=== PATIENT | female | born 1930 | race Caucasian/White ===

== ENCOUNTER 2019-06-19 02:31 | Inpatient (IN) | payer MEDICARE, BC ==
[~2019-06-19] VITALS: Ht 170.2 cm; Wt 73.2 kg
[2019-06-19] MEDS ORDERED: LASIX40 MG PO (02:39)
[2019-06-19] MEDS ORDERED: NEXIUM40 MG PO (02:40)
[2019-06-19] MEDS ORDERED: KLOR-CON M2020 MEQ PO (02:40)
[2019-06-19] MEDS ORDERED: ASPIRIN81 MG PO (02:40)
[2019-06-19] MEDS ORDERED: DILTIAZEM 24HR360 M4 PO (02:40)
[2019-06-19] MEDS ORDERED: METOPROLOL TART25 MG PO (02:41)
[2019-06-19] MEDS ORDERED: HYDROCODON-ACE1 EAC7 PO (02:41)
[2019-06-19] MEDS ORDERED: LANOXIN125 MCG PO (02:41)
[2019-06-19] MEDS ORDERED: COLACE100 MG PO (02:42)
[2019-06-19] MEDS ORDERED: MULTI-DAY VITAM1 TAB PO (02:42)
[2019-06-19] MEDS ORDERED: MUCINEX600 MG PO (02:42)
[2019-06-19] MEDS ORDERED: COUMADIN5 MG PO (02:43)
[2019-06-19] MEDS ORDERED: ACETAMINOPHEN500 M1 PO (02:43)
[2019-06-19] MEDS ORDERED: SINGULAIR10 MG PO (02:45)
[2019-06-19] MEDS ORDERED: FERROUS SULFAT325 MG PO (02:45)
[2019-06-19] MEDS ORDERED: MAG-OXIDE400 MG PO (02:46)
[2019-06-19 03:03] LABS: BASOPHILS 0.2 % (0-2); EOSINOPHILS 1.2 % (0-7); HEMATOCRIT 33.5 % (36.0-48.0); HEMOGLOBIN 11.5 g/dL (12-16); IMMATURE GRANULOCYTES 0.6 % (0-5); LYMPHOCYTES 16.2 % (15-50); MCH 31.3 pg (26.0-34.0); MCHC 34.3 g/dL (31.0-37.0); MCV 91.3 fL (80.0-100.0); MEAN PLATELET VOLUME 9.4 fL (7.4-10.4); MONOCYTES 7.9 % (2-11); NEUTROPHILS 73.9 % (40-80); PLATELET COUNT 309 10x3/uL (130-400); RBC 3.67 10x6/uL (4.00-5.40); RDW 14.6 % (11.5-14.5); WBC 11.6 10x3/uL (4.8-10.8)
[2019-06-19 03:11] LABS: CALC OSMOLALITY 261 mosm/kg (275-300); CALCIUM 8.4 mg/dL (8.5-10.1); CARBON DIOXIDE 26.4 mmol/L (21.0-32.0); CHLORIDE - SERUM 95 mmol/L (98-107); CREATININE - SERUM 0.9 mg/dL (0.6-1.3); GLUCOSE 124 mg/dL (74-106); POTASSIUM - SERUM 4.7 mmol/L (3.5-5.1); SODIUM 129 mmol/L (136-145); UREA NITROGEN 19 mg/dL (7-18); eGFR NON AFRICAN AMERICAN 62 mL/min (90-120)
[2019-06-19 03:13] LABS: APTT 31.2 SECONDS (22.8-39.4); INR 1.26 (0.85-1.17); PROTIME 15.3 SECONDS (11.6-15.0)
[2019-06-19 03:27] LABS: ALBUMIN 3.2 g/dL (3.4-5.0); ALKALINE PHOSPHATASE 101 U/L (46-116); ALT (SGPT) 19 U/L (10-68); BILIRUBIN - TOTAL 0.75 mg/dL (0.2-1.3); CKMB 0.5 U/L (0.0-3.6); CREATINE KINASE 165 UL (21-215); PROTEIN - SERUM 6.6 g/dL (6.4-8.2); TROPONIN-I < 0.017 ng/mL (0.000-0.060)
[2019-06-19 04:00] VITALS: BP 147/66
[2019-06-19 06:07] VITALS: BP 113/68; BMI 25.2
[2019-06-19] MEDS ORDERED: SMZ-TMP DS 800-1 TAB PO (06:27)
[2019-06-19] MEDS ORDERED: ZOLOFT25 MG PO (06:28)
--- NOTE | 2019-06-19 07:15 | NUR ---
PATIENT SITTING UP IN BED WITH GLASSES ON ALONG WITHT THE TV. ASSISSTED PATIENT TO THE BATHROOM. 700 ML OF OUTPUT. EDUCATED PT ON MEDICATIONS CURRENTLY RUNNING THROUGH IV. PLACED PT BACK IN BED WITH BED RAILS UP X 2 , BED IN LOW POSITION AND CALL LIGHT IN REACH. PT DENIES ANY ADDITIONAL NEEDS AT THIS TIME
[2019-06-19 07:59] VITALS: BP 104/45
[2019-06-19 08:09] VITALS: Ht 170.2 cm; Wt 73.2 kg
[2019-06-19 11:23] VITALS: BP 113/59
[2019-06-19 15:19] LABS: T4 THYROXIN - FREE 0.94 ng/dL (0.76-1.46); THYROID STIMULATING HORMONE 0.85 uIU/mL (0.36-3.74)
[2019-06-19 15:37] LABS: % SATURATION 12 % (15-55); IRON 31 ug/dl (35-150); TOTAL IRON BIND CAPACITY 239 ug/dl (260-445); UNSAT IRON BIND CAPACITY 208 ug/dl (150-375)
--- NOTE | 2019-06-19 19:28 | NUR ---
EVENING ROUDNS COMPLETE, PT LAYING IN BED, NO SIGNS OF DISTRESS. PT DENIES ANY PAIN OR NEEDS AT THIS TIME. AAOX4, CL IN REACH, BED IN LOWEST POSITION.
[2019-06-19 20:00] VITALS: BP 134/71
[2019-06-19 22:06] LABS: APPEARANCE CLEAR (CLEAR); BILIRUBIN NEGATIVE (NEGATIVE); COLOR YELLOW (YELLOW); GLUCOSE NEGATIVE (NEGATIVE); KETONE NEGATIVE (NEGATIVE); NITRITE NEGATIVE (NEGATIVE); PROTEIN NEGATIVE (NEGATIVE); UROBILINOGEN NORMAL (NORMAL)
[2019-06-20 01:08] VITALS: BP 105/51
[2019-06-20 05:32] VITALS: BP 114/71
[2019-06-20 07:03] LABS: BASOPHILS 0.5 % (0-2); EOSINOPHILS 0.7 % (0-7); HEMATOCRIT 29.8 % (36.0-48.0); IMMATURE GRANULOCYTES 0.7 % (0-5); LYMPHOCYTES 24.3 % (15-50); MCH 30.5 pg (26.0-34.0); MCHC 33.6 g/dL (31.0-37.0); MCV 90.9 fL (80.0-100.0); MEAN PLATELET VOLUME 9.3 fL (7.4-10.4); MONOCYTES 11.4 % (2-11); NEUTROPHILS 62.4 % (40-80); PLATELET COUNT 285 10x3/uL (130-400); RBC 3.28 10x6/uL (4.00-5.40); RDW 14.8 % (11.5-14.5)
--- NOTE | 2019-06-20 07:15 | NUR ---
BEDSIDE REPORT GIVEN, PT AWAKE AND ALERT WITHOUT COMPLAINTS. IV INFUSING TO RIGHT WRIST.
[2019-06-20 07:21] LABS: ALKALINE PHOSPHATASE 93 U/L (46-116); ALT (SGPT) 17 U/L (10-68); BILIRUBIN - TOTAL 0.94 mg/dL (0.2-1.3); CALCIUM 8.6 mg/dL (8.5-10.1); CARBON DIOXIDE 27.3 mmol/L (21.0-32.0); CHLORIDE - SERUM 98 mmol/L (98-107); GLUCOSE 118 mg/dL (74-106); POTASSIUM - SERUM 4.4 mmol/L (3.5-5.1); PROTEIN - SERUM 6.3 g/dL (6.4-8.2); SODIUM 130 mmol/L (136-145)
[2019-06-20 07:22] LABS: CALC OSMOLALITY 261 mosm/kg (275-300); CREATININE - SERUM 0.6 mg/dL (0.6-1.3); UREA NITROGEN 13 mg/dL (7-18); eGFR NON AFRICAN AMERICAN > 90 mL/min (90-120)
[2019-06-20 10:39] VITALS: BP 120/61
--- NOTE | 2019-06-20 12:20 | NUR ---
Rehab Prescreening Consult recieved and the chart has been reviewed. She is a good rehab candidate and will be accepted when medically stable. Discussed with the CM Godfrey Thurston. Cleo Hmailton RN Clinical Liaison, Rehab
[2019-06-20 13:19] VITALS: BP 125/71
--- NOTE | 2019-06-20 14:30 | NUR ---
PT HAS BEEN RUNNING UNCONTROLLED AFIB THIS MORNING, (120'S) AND ON ORAL CARDIZEM NOW AFTER DRIP BEING GIVEN ONE TIME DOSE. DR CARDONA AWARE OF RATE WITH VISIT TO PT ROOM.
--- NOTE | 2019-06-20 15:25 | EC ---
PATIENT:CAM GUTIERREZ DATE OF SERVICE: 06/19/19 SEX: F MEDICAL RECORD: [id number] DATE OF : [birth year] LOCATION:D.M2 D.210 AGE OF PATIENT: 88 ADMISSION DATE: 06/19/19 REFERRING PHYSICIAN: INTERPRETING PHYSICIAN: JANNET EWING MD ECHOCARDIOGRAM REPORT ECHO CHARGES 4 ECHO COMPLETE Date: 06/19/19 CLINICAL DIAGNOSIS: A-FIB H/O TAVR ECHOCARDIOGRAPHIC MEASUREMENTS (adult normal given) AC root (d.<3.7cm) 2.6 cm LV Septum d (<1.2 cm> 0.7 cm Valve Excursion 1.3 cm LV Septum (systole) 1.1 cm Left Atria (s.<4.0cm> 5.2 cm LVPW d(<1.2cm) 1.1 cm RV (d.<2.3cm) 2.5 cm LVPW (sytole) 1.5 cm LV diastole(<5.6CM) 4.8 cm MV E-F(>70mm/sec) cm LV systole 3.4 cm LVOT Diameter 1.8 cm MV exc.(>10mm) cm Est.ejection fraction (50-75%) % DOPPLER: LVIT cm/sec A cm/sec E 141 cm/sec LA cm/sec RVSP 45.2 mmHg LVOT 65.0 cm/sec AOP1/2T m/s Asc. Ao 181 cm/sec RVOT 65.0 cm/sec RA cm/sec PA 97.0 cm/sec AV Gradient Peak 13.1 mmHg AV Mean 7.4 mmHg AV Area 0.8 cm MV Gradient Peak 7.6 mmHg MV Mean 2.4 mmHg MV Area cm COMMENTS: Tank Truck Milk Receiver: 1 DAMON HARMONOE Electrical Continuity Tester: 1 Dr. Ewing TAPE# PACS Pericardial Effusion N DATE OF SERVICE: PROCEDURE: Echocardiogram. FINDINGS: 1. Left ventricular chamber size is mildly dilated. Left ventricular systolic function is mild to moderately reduced at 35%. 2. Left atrium is markedly enlarged at 5.2 cm. Right atrium and right ventricular chamber sizes are as well moderately dilated. 3. Valvular structures: Aortic valve is replaced with a tissue prosthesis that ECHOCARDIOGRAM REPORT [id number] CAM GUTIERREZ is a TAVR valve and that has normal structure and function in this position. The remaining valvular structures have normal structure and motion. 4. Doppler interrogation reveals moderate mitral regurgitation, moderate tricuspid regurgitation, no other valvular insufficiency or stenosis. Pulmonary systolic pressure is estimated 45 mmHg. 5. No evidence of pericardial effusion or left ventricular thrombus. TRANSINT:[id number] Voice Confirmation ID: [id number] DOCUMENT ID: [id number] JANNET EWING MD at 1525 CC: [id number] DICTATION DATE: 06/19/19 1553 SURGEON CHIEF: 06/20/19 0016 ADM IN [place] [id number] [place] [id number]
--- NOTE | 2019-06-20 15:25 | CN ---
PATIENT NAME:CAM ZAZUETA MEDICAL RECORD: [id number] : [birth year] LOCATION:D. D.2102 ADMIT DATE: 06/19/19 ACCOUNT: [id number] CONSULTING PHYSICIAN: JANNET CONKLIN MD REFERRING PHYSICIAN: MARY HECTOR MD DATE OF CONSULTATION: 06/19/2019 CARDIOLOGY CONSULTATION DIAGNOSES: 1. Atrial fibrillation. 2. Tachycardia. 3. Hypertension. 4. Status post fall -- hip pain. HISTORY OF PRESENT ILLNESS: Mrs. Zazueta was admitted with noncardiac reasons, status post fall and hip pain, does not appear that she fractured her hip. She was in atrial fibrillation with rapid ventricular response. However, the atrial fibrillation is not new. She has had this for years. She is on diltiazem, metoprolol, digoxin as well as Coumadin for the atrial fibrillation. She has not had any chest pain, chest discomfort, or symptoms from the atrial fibrillation. She did have palpitations when she was in extreme pain last night and felt the tachycardia. She did not miss any doses of her medications. PHYSICAL EXAMINATION: CONSTITUTIONAL/GENERAL APPEARANCE: Well nourished, well developed, appears stated age. EYES: Lids and conjunctivae noninjected. No discharge. No pallor. ENT: Lips within normal limit. No cyanosis. No pallor. NECK: Carotid arteries, bilateral normal upstroke. No bruits. No thrills. No jugular venous pressure or distention. CERVICAL LYMPH NODES: Nontender. Nonenlarged. THYROID: Not enlarged. No nodules. CARDIOVASCULAR: Precordial exam, nondisplaced. No heaves or pericardial thrills. The heart is irregularly irregular with atrial fibrillation at approximately 100 at this time. Heart sounds, normal S1, normal S2. No S3, no gallop, no rub. Systolic murmur, not heard. Diastolic murmur, not heard. RESPIRATORY: Respiratory effort, unlabored. Normal curvature. No thoracic deformity. No chest wall tenderness. Percussion, resonant. Auscultation, clear. No wheezes, no rales, no rhonchi. ABDOMEN: Soft, nondistended, nontender. No abdominal pain, no vomiting and normal appetite. MUSCULOSKELETAL: No joint tenderness, normal gait, normal tone. SKIN: Warm and dry. OVERALL IMPRESSION: Atrial fibrillation. This is not new. At this time, we will restart her home medications. She was given a diltiazem drip, we will discontinue this with restarting the medications, the p.o. medication should control the atrial fibrillation rate. TRANSINT:[id number] Voice Confirmation ID: [id number] DOCUMENT ID: [id number] CONSULT REPORT [id number] CAM ZAZUETA, JANNET CAMPBELL at 1525 CC: [id number] DICTATION DATE: 06/19/19 08 PHYSICAL THERAPY INSTRUCTOR: 06/19/19 1135 ADM IN [place] [id number] [place] [address]
--- NOTE | 2019-06-20 15:37 | MORECARE ---
CASE MANAGEMENT DISCHARGE SUMMARY PATIENT: CAM GUTIERREZ UNIT: [id number] ADM DATE: 06/19/19 AGE: 88 : [birth year] SEX: F ROOM/BED: D.210 AUTHOR: TIFFANY STACK PHYSICIAN: REFERRING PHYSICIAN: MARY HECTOR MD DATE OF SERVICE: 06/20/19 Discharge Plan Patient Name: CAM GUTIERREZ [facility] [facility] 1930 Planned Disposition: Inpatient Rehab Anticipated Discharge Date: 06/20/19 Discharge Date: Expected LOS: 1 Initial Reviewer: [email or web address] Initial Review Date: 06/20/2019 Generated: 06/20/19 4:36 pm Patient Name: CAM GUTIERREZ Page 70148 at 1537 All edits/amendments must be made on the electronic document DICTATION DATE: 06/20/191535 CAMPAIGN MARKETING SPECIALIST: JACKELIN 06/20/191535 RPT#: [id number] DC DATE: STATUS: ADM IN [facility] [address] [place] [address] END OF REPORT
--- NOTE | 2019-06-20 15:47 | MORECARE ---
CASE MANAGEMENT DISCHARGE SUMMARY PATIENT: CAM GUTIERREZ UNIT: [id number] ADM DATE: 06/19/19 AGE: 88 : [birth year] SEX: F ROOM/BED: D.210 AUTHOR: TIFFANY STACK PHYSICIAN: REFERRING PHYSICIAN: MARY HECTOR MD DATE OF SERVICE: 06/20/19 Discharge Plan Patient Name: CAM GUTIERREZ [facility] [facility] 1930 Planned Disposition: Inpatient Rehab Anticipated Discharge Date: 06/20/19 Discharge Date: Expected LOS: 1 Initial Reviewer: [email or web address] Initial Review Date: 06/20/2019 Generated: 06/20/19 4:47 pm Last DP export: 06/20/19 2:37 Patient Name: CAM GUTIERREZ Page 25031 at 1547 All edits/amendments must be made on the electronic document DICTATION DATE: 06/20/191546 SHIRT CREASER: JACKELIN 06/20/191546 RPT#: [id number] DC DATE: STATUS: ADM IN [facility] [address] [place] [address] END OF REPORT
--- NOTE | 2019-06-20 15:59 | MORECARE ---
CASE MANAGEMENT DISCHARGE SUMMARY PATIENT: CAM GUTIERREZ UNIT: [id number] ADM DATE: 06/19/19 AGE: 88 : [birth year] SEX: F ROOM/BED: D.2107 AUTHOR: SREEKANTH,DOC PHYSICIAN: REFERRING PHYSICIAN: MARY HECTOR MD DATE OF SERVICE: 06/20/19 Discharge Plan Patient Name: CAM GUTIERREZ [facility] [facility] 1930 Planned Disposition: Inpatient Rehab Anticipated Discharge Date: 06/20/19 Discharge Date: Expected LOS: 1 Initial Reviewer: [email or web address] Initial Review Date: 06/20/2019 Generated: 06/20/19 4:59 pm Comments DCP- Discharge Planning Updated by [email or web address]: Justin Thurston on 06/20/19 2:[address] Patient Name: CAM GUTIERREZ Admission Status: ER Accout number: [id number] Admission Date: 06-19-2019 : 1930 Admission Diagnosis: Attending: MARY HECTOR Current LOS: 1 Anticipated DC Date: 06-20-2019 Planned Disposition: Inpatient Rehab Primary Insurance: MEDICARE A & B PLANNED EXTERNAL PROVIDER: [facility] INPATIENT REHAB Discharge Planning Comments: CM RECEIVED ORDER FOR INPATIENT REHAB PRESCREENING , MET WITH PT AND SON IN ROOM TO DISCUSS DISCHARGE PLANNING AND NEEDS. CAM GUTIERREZ provided verbal consent to discuss current and ongoing needs with/in the presence of: SON AND DAUGHTER. PT'S SON WAS NOT ABLE TO REACH DAUGHTER DANIEL VIA PHONE. PT REPORTS LIVING AT ASSISTED LIVING WHO PROVIDED HELP WITH MEALS AND MEDICATIONS. PT HAS CANE, WALKER AND NIGHTTIME OXYGEN FROM UNKNOWN PROVIDER. CM DISCUSSED AVAILABILITY OF HOME HEALTH, REHAB SERVICES AND MEDICAL EQUIPMENT. PT AND FAMILY CONSIDERING REHAB AT INPATIENT AT [facility]. CM DISCUSSED DIFFERENCES AT LENGTH. PT AND SON WILL SPEAK TO DAUGHTER AND MAKE DECISION TODAY. CM RECEIVED CALL FROM PT'S SON, THEY HAVE DECIDED FOR INPATIENT REHAB AT [facility]. CM MET WITH PT AND SON IN ROOM, CONSENT SIGNED. [facility] NOTIFIED [facility] WHO WILL DISCHARGE PT TO INPATIENT REHAB. CM SPOKE TO [facility] OF INPATIENT REHAB WHO WILL ACCEPT PT TODAY. [facility] INPATIENT REHAB TO CONTACT MED 2 NURSE WITH ROOM NUMBER WHEN READY TO ACCEPT PT AND NURSE REPORT. Police And Fire Dispatcher: Jusitn Thurston DCPIA - Discharge Planning Initial Assessment Updated by [email or web address]: Justin Thurston on 06/20/19 3:53 pm * Is the patient Alert and Oriented? Yes * How many steps to enter\exit or inside your home? NONE * PCP DR. RICE * Pharmacy PT NOR SON CAN REMEMBER * Preadmission Environment Assisted Living * Facility Name [facility] * ADLs Partial Dependent * Partial ADLs (Assistance needed) Medication Management * Equipment Cane Oxygen Walker * Other Equipment UNKNOWN OXYGEN PROVIDER HOME OXYGEN ONLY AT NIGHT * List name and contact numbers for known caregivers / representatives who currently or will assist patient after discharge: DANIEL DOUGLASS, DTR, JAMIE GUTIERREZ, SON, * Verbal permission to speak to the caregivers and representatives has been obtained from the patient. Yes * Community resources currently utilized None * Please name any agencies selected above. NONE * Additional services required to return to the preadmission environment? Yes * Can the patient safely return to the preadmission environment? Yes * Has this patient been hospitalized within the prior 30 days at any hospital? No Coverage Notice Reviewer: [id number] - Justin Thurston Notice Issued Date-Time: 06/20/2019 14:40 Notice Type: Patient Choice Letter Notice Delivered To: Patient Relationship to Patient: Fuel Cell Test Engineer Name: Delivery Method: HAND - Hand Delivered Linnea Days: Prior Verbal Notification: Recipient Understood Notice: Yes Recipient Signature: Yes Med Rec Note Co-signed by Attending: Coverage Notice Comment: [facility] INPATIENT REHAB Last DP export: 06/20/19 2:47 Patient Name: CAM GUTIERREZ Page [id number] at 1559 All edits/amendments must be made on the electronic document DICTATION DATE: 06/20/191558 LEASING ASSISTANT: JACKELIN 06/20/191558 RPT#: [id number] DC DATE: STATUS: ADM IN [facility] [address] [place] [address] END OF REPORT
[2019-06-20 18:10] VITALS: BP 106/46
--- NOTE | 2019-06-20 19:33 | NUR ---
TRANSFERRED PT TO INPATIENT REHAB. FAMILY WITH. SENT WITH TELEMETRY PER VERBAL ORDER FROM ALAINA DAWSON DUE TO PT HISTORY.
--- NOTE | 2019-06-21 07:27 | NUR ---
OT NOTE: DOS 06/20/19 PT IS UNSTEADY AND REQUIRED MIN A FOR DYNAMIC ACTIVITIES. PT COMPLETED BED MOB WITH CGA. PT REQUIRED SUPINE TO SIT WITH MIN A. PT COMPLETED UE AROM AXS. THANK YOU, CANDIDO LEON
== END 2019-06-20 19:34 | DRG 309 ==
LOC: D.ER 02:31 → D.M2 03:25
PROVIDERS: Family Medicine; ADMIT Internal Medicine Nephrology; ATTEND Internal Medicine Nephrology
DX: I48.91 Unspecified atrial fibrillation (principal); N17.9 Acute kidney failure, unspecified; E87.1 Hypo-osmolality and hyponatremia; M25.551 Pain in right hip; W18.30XA Fall on same level, unspecified, initial encounter; D50.9 Iron deficiency anemia, unspecified; J44.9 Chronic obstructive pulmonary disease, unspecified; Z91.81 History of falling; K21.9 Gastro-esophageal reflux disease without esophagitis

== ENCOUNTER 2019-06-20 17:23 | Inpatient (IN) | payer MEDICARE, BC ==
[~2019-06-20] VITALS: Ht 170.2 cm; Wt 70.7 kg
[~2019-06-20 17:23] MED LIST: ACETAMINOPHEN500 M1 PO; ASPIRIN81 MG PO; COLACE100 MG PO; COUMADIN5 MG PO; DILTIAZEM 24HR360 M4 PO; FERROUS SULFAT325 MG PO; HYDROCODON-ACE1 EAC7 PO; KLOR-CON M2020 MEQ PO; LANOXIN125 MCG PO; LASIX40 MG PO; MAG-OXIDE400 MG PO; METOPROLOL TART25 MG PO; MUCINEX600 MG PO; MULTI-DAY VITAM1 TAB PO; NEXIUM40 MG PO; SINGULAIR10 MG PO; SMZ-TMP DS 800-1 TAB PO; ZOLOFT25 MG PO
[2019-06-20 21:39] VITALS: BP 113/46; BMI 25.1
--- NOTE | 2019-06-20 22:38 | NUR ---
ADMITTED TO PHYSICAL REHAB AND SERVICES OF DR PHILLIPS. AWAKE AND ALERT. RESPIRATIONS UNLABORED. SEE ADMISSION ASSESSMENT. ORIENTED TO PERSON AND PLACE BUT NOTED FORGETFUL OF DETAILS AND SHORT TERM MEMORY. NOTED HEAVY BRUISING ON RIGHT SIDE OF BODY, HIP AND BACK AND SMALL AMOUNT OF BRUISING ON LEFT HIP AREA RELATED TO FALLS X 2 AT HOME. MINIMAL ASSIST FOR TRANSFERS. ORIENTED TO ROOM AND CALL LIGHT USE. VOICES UNDERSTANDING. FALL PRECAUTIONS REVIEWED. VOICES UNDERSTANDING. SALINE LOCK TO RIGHT WRIST INTACT WITH NO SIGNS OF INFILTRATION. SALINE LOCK TO INNER RIGHT FOREARM DC'D PER PATIENT REQUEST. TELEMETRY ON TRACING UNCONTROLLED ATRIAL FIBRILLATION. DENIES CHEST PAIN OR SHORTNESS OF BREATH. RESTING NOW WITH NO DISTRESS NOTED. CALL LIGHT IN REACH.
--- NOTE | 2019-06-21 02:22 | NUR ---
RESTING IN BED WITH EYES CLOSED AND RESPIRATIONS UNLABORED. NO DISTRESS NOTED. CALL LIGHT IN REACH.
--- NOTE | 2019-06-21 03:01 | NUR ---
WOKE UP CONFUSED ASKING ABOUT SCHOOL EVENT. HAD PULLED OUT SALINE LOCK TO RIGHT WRIST. ASSISTED TO BATHROOM AND BACK TO BED. WILL MONITOR. CALL LIGHT IN REACH.
--- NOTE | 2019-06-21 04:44 | NUR ---
ASSISTED TO BATHROOM AND BACK TO BED. C/O PAIN IN RIGHT SIDE WITH ANY PHYSICAL ACTIVITY. ASSISTED TO LIE ON LEFT SIDE FOR COMFORT. MESSAGE LEFT FOR DR. PHILLIPS ON ROUNDING SHEET REGARDING PAIN.
--- NOTE | 2019-06-21 05:35 | NUR ---
RESTING QUIETLY, NO ACUTE DISTRESS NOTED. CONTINUES IN UNCONTROLLED ATRIAL FIB ON TELEMETRY.
[2019-06-21 07:49] LABS: CALC OSMOLALITY 259 mosm/kg (275-300); CALCIUM 8.7 mg/dL (8.5-10.1); CHLORIDE - SERUM 96 mmol/L (98-107); CREATININE - SERUM 0.5 mg/dL (0.6-1.3); GLUCOSE 126 mg/dL (74-106); SODIUM 129 mmol/L (136-145); UREA NITROGEN 10 mg/dL (7-18); eGFR NON AFRICAN AMERICAN > 90 mL/min (90-120)
[2019-06-21 07:53] LABS: BASOPHILS 0.3 % (0-2); EOSINOPHILS 2.3 % (0-7); HEMATOCRIT 31.5 % (36.0-48.0); HEMOGLOBIN 10.3 g/dL (12-16); IMMATURE GRANULOCYTES 0.5 % (0-5); LYMPHOCYTES 17.3 % (15-50); MCHC 32.7 g/dL (31.0-37.0); MCV 91.8 fL (80.0-100.0); MEAN PLATELET VOLUME 9.1 fL (7.4-10.4); MONOCYTES 10.1 % (2-11); NEUTROPHILS 69.5 % (40-80); PLATELET COUNT 295 10x3/uL (130-400); RBC 3.43 10x6/uL (4.00-5.40); RDW 14.8 % (11.5-14.5); WBC 7.3 10x3/uL (4.8-10.8)
[2019-06-21 08:00] VITALS: BP 132/69
--- NOTE | 2019-06-21 08:15 | NUR ---
PT RESTING IN BED WITH EYES OPEN CALL IN REACH WILL MONITER
[2019-06-21 09:52] VITALS: Ht 170.2 cm; Wt 70.7 kg
--- NOTE | 2019-06-21 14:34 | NUR ---
PATIENT ADMITTED TO REHAB FROM ACUTE FLOOR. DR. RICE IS HER PCP. PATIENT LIVES AT [facility] IN [place]. DME AT HOME IS A CANE, WALKER AND O2. DISCHARGE PLANS ARE FOR PATIENT TO RETURN TO HER HOME. WILL CONTINUE TO FOLLOW WITH PATIENT.
--- NOTE | 2019-06-21 18:53 | NUR ---
PT RESTING IN BED WITH EYES OPEN CALL LIGHT IN REACH NO PROBLEMS WILL MONITER
[2019-06-21 19:30] VITALS: BP 144/78
--- NOTE | 2019-06-21 19:30 | NUR ---
BEDSIDE REPORT COMPLETE. PT LYING IN BED EYES CLOSED RESTING COMFORTABLY. RR EVEN AND UNLABORED. EASILY AROUSED WITH VERBAL STIMULI. DENIES ANY NEEDS OR PAIN. BRUISING TO RIGHT BREAST, ARM, AND BACK. CL IN REACH. FALL PRECAUTIONS IN PLACE. WILL CONTINUE TO MONITOR
--- NOTE | 2019-06-22 01:11 | NUR ---
QUIET HOURS. PT LYING IN BED EYES CLOSED RESTING QUIETLY. RR EVEN AND UNLABORED. CL IN REACH
--- NOTE | 2019-06-22 04:00 | NUR ---
ASSISTED PT TO RESTROOM AND BACK TO BED WITH MIN ASSIST. NO SIGNS OF ACUTE DISTRESS NOTED. CL IN REACH. BED ALARM ON
[2019-06-22 08:00] VITALS: BP 146/64
--- NOTE | 2019-06-22 08:00 | NUR ---
PATIENT IS ALERT/ORIENT. CALL LIGHT WITHIN REACH. VOICES NO NEEDS AT THIS TIME. WILL CONTINUE WITH PLAN OF CARE
--- NOTE | 2019-06-22 10:50 | NUR ---
PATIENT IN REHAB ROOM. WORKING WITH PHYSICAL THERAPIST. DENIES ANY PAIN/DISC AT THIS TIME.
--- NOTE | 2019-06-22 13:06 | NUR ---
PATIENT SITTING UP IN WHEELCHAIR AT BEDSIDE VISITORS IN ROOM.
[2019-06-22 18:50] VITALS: BP 113/48
--- NOTE | 2019-06-22 18:50 | NUR ---
BEDSIDE REPORT COMPLETE. PT SITTING UP IN WC ALERT AND ORIENTED TO SELF. REORIENTED TO TIME, PLACE, AND SITUATION. DENIES ANY NEEDS OR PAIN. RR EVEN AND UNLABORED. VS STABLE. SHIFT ASSESSMENT COMPLETE. CL IN REACH. FALL PRECUATIONS IN PLACE. WILL CONTINUE TO MONITOR
--- NOTE | 2019-06-23 01:00 | NUR ---
ASSISTED PT TO RESTROOM AND BACK TO BED WITH MIN ASSIST. NO SIGNS OF ACUTE DISTRESS NOTED. CL IN REACH. BED ALARM ON
--- NOTE | 2019-06-23 06:28 | NUR ---
PT LYING IN BED EYES CLOSED RESTING QUIETLY. RR EVEN AND UNLABORED. CL IN REACH
[2019-06-23 08:00] VITALS: BP 127/88
--- NOTE | 2019-06-23 08:00 | NUR ---
SHIFT ASSMT COMPLETED.DENIES NEEDS.UP OOB TO BATHROOM.INCONT OF LOOSE BM.CLEANED AND CLOTHES CHANGED.SITTING UP EATING BREAKFAST WITH SET-UP PROVIDED.
--- NOTE | 2019-06-23 12:00 | NUR ---
SITTING UP EATING LUNCH.HAD C/O NAUSEA DURING LUNCH BUT RESOLVED;NO EMESIS.
--- NOTE | 2019-06-23 16:00 | NUR ---
VISITING WITH FAMILY.
[2019-06-23 19:20] VITALS: BP 87/57
--- NOTE | 2019-06-23 19:20 | NUR ---
BEDSIDE REPORT COMPLETE. PT LYING IN BED EYES CLOSED RESTING. EASILY AROUSED WITH VERBAL STIMULI. NO SIGNS OF ACUTE DISTRESS NOTED. DENIES ANY NEEDS OR PAIN. VS STABLE. SHIFT ASSESSMENT COMPLETE. CL IN REACH. BED ALARM ON. WILL CONTINUE TO MONITOR
--- NOTE | 2019-06-23 23:34 | NUR ---
QUIET HOURS. PT LYING IN BED SUPINE EYES CLOSED RESTING. HOB 10 DEGREES. RR EVEN AND UNLABORED. CL IN REACH
--- NOTE | 2019-06-24 03:37 | NUR ---
PT LYING IN BED EYES CLOSED RESTING QUIETLY. RR EVEN AND UNLABORED. CL IN REACH
--- NOTE | 2019-06-24 04:15 | NUR ---
ASSISTED PT TO RESTROOM AND BACK TO BED WITH MIN ASSIST. DENIES ANY OTHER NEEDS. CL IN REACH.
[2019-06-24 07:07] LABS: CALC OSMOLALITY 256 mosm/kg (275-300); CALCIUM 8.6 mg/dL (8.5-10.1); CARBON DIOXIDE 28.7 mmol/L (21.0-32.0); CHLORIDE - SERUM 93 mmol/L (98-107); CREATININE - SERUM 0.5 mg/dL (0.6-1.3); GLUCOSE 115 mg/dL (74-106); POTASSIUM - SERUM 4.1 mmol/L (3.5-5.1); SODIUM 128 mmol/L (136-145); UREA NITROGEN 11 mg/dL (7-18); eGFR NON AFRICAN AMERICAN > 90 mL/min (90-120)
[2019-06-24 07:15] LABS: BASOPHILS 0.5 % (0-2); EOSINOPHILS 1.9 % (0-7); HEMATOCRIT 31.2 % (36.0-48.0); HEMOGLOBIN 10.4 g/dL (12-16); IMMATURE GRANULOCYTES 0.8 % (0-5); LYMPHOCYTES 21.1 % (15-50); MCH 30.5 pg (26.0-34.0); MCHC 33.3 g/dL (31.0-37.0); MCV 91.5 fL (80.0-100.0); MEAN PLATELET VOLUME 8.9 fL (7.4-10.4); NEUTROPHILS 62.7 % (40-80); PLATELET COUNT 332 10x3/uL (130-400); RBC 3.41 10x6/uL (4.00-5.40); RDW 15.6 % (11.5-14.5); WBC 6.3 10x3/uL (4.8-10.8)
--- NOTE | 2019-06-24 08:27 | NUR ---
ALERT AND ORIENTED. SITTING IN WC EATING BREAKFAST. NO C/O PAIN CL IN REACH.
[2019-06-24 09:18] VITALS: BP 131/62
--- NOTE | 2019-06-24 13:03 | NUR ---
PARTICIPATED IN THERAPY THIS AM. SITTING IN CHAIR AT THIS TIME EATING LUNCH. CL IN REACH.
--- NOTE | 2019-06-24 13:56 | NUR ---
Nutrition Follow-up: Diet: Cardiac PO intake: ~47% average x last 9 meals. Reports "average" appetite. She tried Ensure and states that it is too sweet. She is willing to try Boost. Last BM: 06/23/19 x 2. WT: 161# (06/24/19); Admit wt: 160# (06/20/19) Meds: lasix. Labs noted: Glu 115mg/dL. Continue current diet. Encouraged PO intake. Encouraged protein intake. Will add Boost to breakfast tray for pt to try. RD following.
--- NOTE | 2019-06-24 15:56 | NUR ---
NO CHANGE IN ASSESSMENT. BACK FROM THERAPY AND RESTING IN BED. CL IN REACH.
--- NOTE | 2019-06-24 19:00 | NUR ---
BEDSIDE REPORT COMPLETE. PT LYING IN BED EYES CLOSED RESTING. EASILY AROUSED WITH VERBAL STIMULI. DENIES ANY NEEDS OR PAIN. NO SIGNS OF ACUTE DISTRESS NOTED. SHIFT ASSESSMENT COMPLETE. VS STABLE. CL IN REACH. BED ALARM ON. WILL CONTINUE TO MONITOR
[2019-06-24 20:56] VITALS: BP 133/78
--- NOTE | 2019-06-25 01:36 | NUR ---
QUIET HOURS. PT LYING IN BED EYES CLOSED RESTING QUIETLY. RR EVEN AND UNLABORED. CL IN REACH
--- NOTE | 2019-06-25 05:21 | NUR ---
PT LYING IN BED SUPINE EYES CLOSED RESTING. RR EVEN AND UNLABORED. CL IN REACH
--- NOTE | 2019-06-25 08:05 | NUR ---
IN WC IN THERAPY EATING BREAKFAST.
[2019-06-25 08:37] VITALS: BP 148/84
--- NOTE | 2019-06-25 10:31 | NUR ---
CARE TEAM MEETING : PATIENT IS PROGRESSING IN THERAPY . HER TENATIVE DISCHARGE DATE IS 07/02/19. SPOKE WITH PATIENT SON ABOUT DISCHARGE DATE. WILL CONTINUE TO FOLLOW WITH PATIENT.
--- NOTE | 2019-06-25 16:21 | NUR ---
RESTING WO DISTRESS. RESP EVEN AND UNLABORED. CL IN REACH.
--- NOTE | 2019-06-25 19:48 | NUR ---
GREETED PATIENT AND INTRODUCED MYSELF HER NURSE. PATIENT IS LAYING IN BED RESTING AT THIS TIME. RESPIRATIONS EVEN. NO S/S OF DISTRESS. CALL LIGHT IN REACH. STATES THAT PAIN IS 3/10 IN LOWER AND MIDDLE BACK. DENIES ANY FURTHER NEEDS AT THIS TIME.
[2019-06-25 20:00] VITALS: BP 125/59
--- NOTE | 2019-06-26 02:19 | NUR ---
PT. RESTING QUIETLY LAYING IN BED WITH EYES OPEN. DENIES ANY NEEDS AT THIS TIME. CALL LIGHT IN REACH.
--- NOTE | 2019-06-26 04:25 | NUR ---
PT. AWAKE AND LAYING IN BED. PT. IS CONFUSED OF HER SURROUNDINGS AT THIS TIME. REORIENTATED TO SURROUNDINGS. CALL LIGHT IN REACH.
[2019-06-26 06:35] LABS: BASOPHILS 0.6 % (0-2); EOSINOPHILS 2.2 % (0-7); HEMATOCRIT 30.9 % (36.0-48.0); HEMOGLOBIN 10.3 g/dL (12-16); IMMATURE GRANULOCYTES 0.6 % (0-5); LYMPHOCYTES 26.2 % (15-50); MCH 30.7 pg (26.0-34.0); MCHC 33.3 g/dL (31.0-37.0); MCV 92.2 fL (80.0-100.0); MEAN PLATELET VOLUME 9.1 fL (7.4-10.4); MONOCYTES 15.2 % (2-11); NEUTROPHILS 55.2 % (40-80); PLATELET COUNT 292 10x3/uL (130-400); RBC 3.35 10x6/uL (4.00-5.40); WBC 6.3 10x3/uL (4.8-10.8)
[2019-06-26 07:02] LABS: CALC OSMOLALITY 259 mosm/kg (275-300); CALCIUM 8.5 mg/dL (8.5-10.1); CARBON DIOXIDE 26.4 mmol/L (21.0-32.0); CHLORIDE - SERUM 94 mmol/L (98-107); CREATININE - SERUM 0.5 mg/dL (0.6-1.3); GLUCOSE 109 mg/dL (74-106); POTASSIUM - SERUM 4.1 mmol/L (3.5-5.1); SODIUM 129 mmol/L (136-145); UREA NITROGEN 13 mg/dL (7-18); eGFR NON AFRICAN AMERICAN > 90 mL/min (90-120)
--- NOTE | 2019-06-26 10:51 | NUR ---
RESTING QUIETLY IN BED. FAMILY HAS BEEN IN ROOM VISITING WITH HER. BRUISING NOTED TO RIGHT SIDE OF BACK. SHE DOES HAVE CURVATURE OF THE SPINE. MIN ASST TO STAND AND TRANSFER FROM BED TO . CALL LIGHT IN REACH
--- NOTE | 2019-06-26 18:04 | NUR ---
LAYING IN BED RESTING QUIETLY. DENIES NEEDS OR C/O. CALL LIGHT IN REACH
[2019-06-26 19:15] VITALS: BP 90/50
[2019-06-26 19:20] VITALS: BP 128/65
--- NOTE | 2019-06-26 19:27 | NUR ---
AWAKE AND ALERT. DISORIENTED TO TIME. RESPIRATIONS UNLABORED. O2/2L ON PER NASAL CANNULA. NO ACUTE DISTRESS NOTED. CALL LIGHT IN REACH.
--- NOTE | 2019-06-26 23:00 | NUR ---
ASSISTED TO BATHROOM AND BACK TO BED. CONTINUES BEING CONFUSED. PACKING AND UNPACKING THINGS IN HER WASH STORY. ENCOURAGED TO TRY AND REST. SHE STATES SHE WILL TRY.
--- NOTE | 2019-06-27 03:05 | NUR ---
SLEEPING NOW WITH RESPIRATIONS UNLABORED. NO DISTRESS NOTED.
--- NOTE | 2019-06-27 03:23 | NUR ---
WOKE UP AND GOT OUT OF BED WITHOUT ASSISTANCE TRIGGERING BED ALARM. ASSISTED BACK TO BED. REMINDED TO ALWAYS CALL FOR ASSISTANCE BEFORE GETTING UP. SHE SAID OK.
--- NOTE | 2019-06-27 05:29 | NUR ---
HAS HAD PERIODS OF CONFUSION TONIGHT. RESTED FOR THE LAST TWO HOURS. RESPIRATIONS UNLABORED. SAFETY MEASURES IN PLACE.
--- NOTE | 2019-06-27 08:09 | NUR ---
ALERT AND ORIENTED. RESP EVEN AND UNLABORED. NO C/O PAIN. BREAKFAST SERVED. CL IN REACH.
[2019-06-27 08:19] VITALS: BP 134/78
--- NOTE | 2019-06-27 10:35 | NUR ---
RESTING WO DISTRESS. RESP EVEN AND UNLABORED. WILL HAVE SHOWER TODAY WITH OT. CL IN REACH.
--- NOTE | 2019-06-27 13:59 | NUR ---
Nutrition Follow-up: Diet: Cardiac + Boost on breakfast tray PO intake: ~48% average x last 10 meals. Reports that her appetite is "down a little." She likes the Boost and states that she could drink up to 2 cans/day. Last BM: 06/23/19 x 2 (x4 days now) WT: 158# (06/27/19); Admit wt: 160# (06/20/19) Meds noted: miralax, colace, lasix. Labs reviewed Continue current diet. Encourage PO intake. Will increase Boost to BID. Consider increase in bowel regimen to promote BM regularity and hopefully help with appetite. RD following.
--- NOTE | 2019-06-27 16:41 | NUR ---
NO CHANGE IN ASSESSMENT. RESTING WO C/O PAIN. CL IN REACH.
--- NOTE | 2019-06-27 19:22 | NUR ---
GREETED PATIENT AND INTRODUCED MYSELF HER NURSE. PATIENT IS LAYING IN BED RESTING QUIETLY AT THIS TIME. RESPIRATIONS EVEN. NO S/S OF DISTRESS. DENIES ANY NEEDS AT THIS TIME. CALL LIGHT IN REACH.
[2019-06-27 19:30] VITALS: BP 137/82
--- NOTE | 2019-06-28 02:27 | NUR ---
PT. RESTING QUIETLY WITH EYES CLOSED. RESPIRATIONS EVEN. NO S/S OF DISTRESS. CALL LIGHT IN REACH.
[2019-06-28 07:34] LABS: BASOPHILS 0.4 % (0-2); EOSINOPHILS 1.1 % (0-7); HEMATOCRIT 34.5 % (36.0-48.0); HEMOGLOBIN 11.6 g/dL (12-16); IMMATURE GRANULOCYTES 0.4 % (0-5); LYMPHOCYTES 21.1 % (15-50); MCH 30.7 pg (26.0-34.0); MCHC 33.6 g/dL (31.0-37.0); MCV 91.3 fL (80.0-100.0); MEAN PLATELET VOLUME 8.4 fL (7.4-10.4); MONOCYTES 14.5 % (2-11); NEUTROPHILS 62.5 % (40-80); RBC 3.78 10x6/uL (4.00-5.40); RDW 15.6 % (11.5-14.5); WBC 5.3 10x3/uL (4.8-10.8)
[2019-06-28 07:36] LABS: CALC OSMOLALITY 252 mosm/kg (275-300); CALCIUM 8.7 mg/dL (8.5-10.1); CHLORIDE - SERUM 90 mmol/L (98-107); CREATININE - SERUM 0.6 mg/dL (0.6-1.3); GLUCOSE 113 mg/dL (74-106); SODIUM 126 mmol/L (136-145); UREA NITROGEN 9 mg/dL (7-18); eGFR NON AFRICAN AMERICAN > 90 mL/min (90-120)
[2019-06-28 07:42] LABS: PLATELET COUNT 355 10x3/uL (130-400)
--- NOTE | 2019-06-28 08:00 | NUR ---
PT RESTINB IN BED WITH EYES OPEN CALL LIGHT IN REACH WILL MONITER
[2019-06-28 10:24] VITALS: BP 132/71
--- NOTE | 2019-06-28 16:57 | NUR ---
PT RESTING IN BED WITH EYES OPEN CALL LIGHT IN REACH WILL MONITER
--- NOTE | 2019-06-28 17:50 | NUR ---
PT RESTING IN BED WITH EYES OPEN CALL LIGHT IN REACH NO PROBLEMS WILL MONITER
[2019-06-28 19:00] VITALS: BP 119/57
--- NOTE | 2019-06-28 19:40 | NUR ---
PT LYING IN BED. CL IN REACH. DENIES NEEDS AT THIS TIME. BED IN LOW SIDE RAILS X2. RESP EVEN AND UNLABORED. CONFUSED AT TIMES. LUNGS CLEAR. BOWEL ACTIVE X4. SOB WITH EXCERTION. WILL CONTINUE TO MONITOR.
--- NOTE | 2019-06-28 22:12 | NUR ---
ASSISTED TO AND FROM BATHROOM. CL IN REACH. DENIES FURTHER NEEDS. WCTM
--- NOTE | 2019-06-29 01:11 | NUR ---
I have reviewed this patient and I concur with the Shift Assessment completed by the Licensed Practical Nurse today this shift.
--- NOTE | 2019-06-29 08:00 | NUR ---
PT RESTING IN BED EATING BREAKFAST TOLERATING WELL WILL MONITER
--- NOTE | 2019-06-29 15:19 | NUR ---
PT RESTING IN BED WITH EYES OPEN CALL LIGHT IN REACH WILL MONITER
[2019-06-29 19:14] VITALS: BP 145/82
--- NOTE | 2019-06-29 19:43 | NUR ---
PT RESTING IN BED WITH EYES CLOSED. AWOKE EASILY TO VERBAL STIMULI. ALERT AND ORIENTED X 3. DENIES ACUTE PAIN OR DISCOMFORT AT THIS TIME. NO NEEDS VOICED. VSS. TELEMETRY UNIT IS ON AND INTACT. SR'S ARE UP X 2 IN BED. CALL LIGHT AND BEDSIDE TABLE ARE WITHIN EASY REACH.
--- NOTE | 2019-06-29 22:05 | NUR ---
PT RESTING IN BED WITH EYES CLOSED. NO DISTRESS NOTED.
[2019-06-29 22:06] VITALS: BP 114/59
--- NOTE | 2019-06-29 23:50 | NUR ---
I have reviewed this patient and I concur with the Shift Assessment completed by the Licensed Practical Nurse today this shift.
--- NOTE | 2019-06-30 04:00 | NUR ---
PT RESTING IN BED WITH EYES CLOSED. RESPS ARE EVEN AND UNLABORED. NO ACUTE DISTRESS NOTED.
[2019-06-30 08:00] VITALS: BP 122/71
--- NOTE | 2019-06-30 08:30 | NUR ---
PT AM MEDS ADMINISTERED. PT DENIES NEEDS. WCTM.
--- NOTE | 2019-06-30 19:21 | NUR ---
PT LYING IN BED RESTING QUIETLY. NO DISTRESS NOTED. CL IN REACH. RESP EVEN AND UNLABORED. A/O X4. CONFUSED AT TIMES. BED IN LOW SIDE RAILS X2. LUNGS CLEAR. BOWEL ACTIVE X4. TELEMETRY ON. WILL CONTINUE TO MONITOR.
[2019-06-30 20:17] VITALS: BP 132/63
--- NOTE | 2019-07-01 00:32 | NUR ---
I have reviewed this patient and I concur with the Shift Assessment completed by the Licensed Practical Nurse today this shift.
[2019-07-01 06:12] LABS: BASOPHILS 0.7 % (0-2); HEMATOCRIT 34.9 % (36.0-48.0); HEMOGLOBIN 11.7 g/dL (12-16); IMMATURE GRANULOCYTES 0.5 % (0-5); LYMPHOCYTES 31.8 % (15-50); MCH 31.2 pg (26.0-34.0); MCHC 33.5 g/dL (31.0-37.0); MCV 93.1 fL (80.0-100.0); MEAN PLATELET VOLUME 8.9 fL (7.4-10.4); PLATELET COUNT 284 10x3/uL (130-400); RBC 3.75 10x6/uL (4.00-5.40); RDW 15.9 % (11.5-14.5); WBC 4.4 10x3/uL (4.8-10.8)
[2019-07-01 06:21] LABS: CALC OSMOLALITY 261 mosm/kg (275-300); CALCIUM 8.6 mg/dL (8.5-10.1); CARBON DIOXIDE 27.1 mmol/L (21.0-32.0); CHLORIDE - SERUM 94 mmol/L (98-107); CREATININE - SERUM 0.6 mg/dL (0.6-1.3); GLUCOSE 104 mg/dL (74-106); SODIUM 130 mmol/L (136-145); UREA NITROGEN 15 mg/dL (7-18); eGFR NON AFRICAN AMERICAN > 90 mL/min (90-120)
--- NOTE | 2019-07-01 08:41 | RHP ---
PATIENT: CAM GUTIERREZ MEDICAL RECORD: [id number] ACCOUNT: [id number] LOCATION:[facility]1112 : [birth year] ADMISSION DATE: 06/20/19 REHABILITATION HISTORY AND PHYSICAL EXAMINATION POST ADMISSION PHYSICIAN EXAMINATION ADMITTING DIAGNOSIS: Atrial fibrillation with rapid ventricular response. HISTORY OF PRESENT ILLNESS: The patient is an 88-year-old female patient with history of hypertension, COPD, reflux, chronic back pain, presented to Emergency Room after having a fall around midnight on 06/18/2019. The patient's daughter stated that the patient had gotten progressively worse over the previous 2 weeks prior to her acute hospital admit and that she has sustained [address] Orosco took the patient off Coumadin because of the risk outweighed the benefit. The patient was seen by a failure analysis engineer in orthopedic throughout the stay, did have some osteoarthritis on x-rays. She continued to have some uncontrolled AFib at times. She was seen by PT and OT throughout her acute stay with recommendations to acute inpatient rehabilitation. Currently on telemetry and medication adjustments for uncontrolled AFib, supplemental oxygen, electrolyte protocol, pain control, deconditioning, debility, impaired mobility, weakness, gait disturbance, high fall risk, and self-care deficits. These are all barriers to her discharge home at this time. The patient and her daughter would like for her to return at home at her prior level of functioning or better after being set up with home health. COMORBIDITIES: Include atrial fibrillation with rapid ventricular response, frequent falls, right hip pain, microcytic anemia, electrolyte abnormalities, tachycardia, hypertension, COPD, chronic back pain, deconditioning and debility. PAST MEDICAL HISTORY: Significant for cataracts, atrial fib, CHF, hypertension, oxygen dependence, acid reflux, arthritis, osteoporosis, dementia, former tobacco use. PAST SURGICAL HISTORY: Includes left mastectomy, atrial valve replacement, right knee replacement and hysterectomy. ALLERGIES: TETANUS, DIPHTHERIA TOXOIDS, LATEX. CURRENT MEDICATIONS: Include Lanoxin 0.125 mg daily, Zoloft 25 mg daily, multivitamin daily, Mag-Ox 400 mg daily, guaifenesin 600 daily, Lasix 40 mg daily, ferrous sulfate 325 daily, Cardizem 360 daily, aspirin 81 mg daily, Protonix 40 mg daily, potassium 20 mEq b.i.d., Singulair 10 mg at bedtime, metoprolol 25 mg b.i.d., [place] 5/325 one tab t.i.d. p.r.n., Colace 100 mg b.i.d. and Tylenol 1000 mg every 6 hours p.r.n. HABITS: She does have a distant history of tobacco use. FAMILY HISTORY: Noncontributory. SOCIAL HISTORY: The patient hopes to return back home and get back to her prior level of functioning. REVIEW OF SYSTEMS: GENERAL: Does complain of some weakness and fatigue. HEENT: Denies cold, cough, or congestion. HISTORY AND PHYSICAL [id number] CAM GUTIERREZ CARDIOVASCULAR: Denies any chest pain. LUNGS: Does complain of some shortness of breath at times. PHYSICAL EXAMINATION: VITAL SIGNS: Stable with her blood pressure is 113/46, respirations are 20, her sat is 97%, her pulse is 77 at this time. GENERAL: An elderly female, in no acute distress, alert upon exam. HEENT: Normocephalic and atraumatic. Mucosa moist. NECK: Supple, with no lymphadenopathy. LUNGS: Clear in upper flores with no wheezing, rhonchi or rales. HEART: Irregular rate and rhythm. ABDOMEN: Soft, benign, and nondistended. Positive bowel sounds times 4. EXTREMITIES: No clubbing, cyanosis or edema. She does have pain to palpation around her hip region. NEUROLOGIC: She does have proximal muscle weakness. LABORATORY DATA: White count 7.3, H&H of 10 and 31 and platelet count was noted to be 295. Sodium is 129, potassium 4.0, BUN and creatinine of 10 and 0.5 and blood sugar is noted to be 126. ASSESSMENT: This is an 88-year-old female patient admitted to rehab with a working diagnosis of cardiac debility secondary to atrial fibrillation with rapid ventricular response and frequent falls. The patient has potential to make improvement. We instituted following multiple disciplinary therapies including, but not limited to physical, occupational, respiratory, speech therapy and prosthetics. The patient really cannot perceive the same level of care at a lower level of care such as jail facility. PLAN: 1. Admit to [facility] rehab for intensive inpatient therapy to include the following disciplines: A. Physical therapy to improve gait, all transfer skills and bed mobility to a modified independent level. B. Occupational therapy to a modified independent level. C. Case management to assist with discharge planning and placement options. D. Nutrition to assist with nutritional needs. E. Rehabilitation nursing to assist in monitoring the patient's underlying medical conditions and to assist with any type of bowel or bladder management. 2. The patient's current medication and medical care will be continued. 3. The patient will be placed on standard fall precautions. 4. The patient's estimated length of stay is approximately 7-10 days. 5. We will discuss this patient during care team staff meeting this week and I will follow up again in the a.m. TRANSINT:[id number] Voice Confirmation ID: [id number] DOCUMENT ID: [id number] GENEVA notes whether there has been none or any medical/functional change since admission: - No change since preadmission screen. GENEVA attests patient continues to be appropriate for IRF: - Continues to be appropriate. HISTORY AND PHYSICAL [id number] CAM GUTIERREZ,SCOTTY LOPES MD at 0841 CC: [id number] DICTATION DATE: 06/21/19 08 NETWORK SYSTEMS ANALYST: 06/21/19 0850 ADM IN [facility] [address] [place] [address]
--- NOTE | 2019-07-01 09:05 | NUR ---
PT AM MEDS ADMINISTERED. PT DRU [place]. THU.
[2019-07-01 10:30] VITALS: BP 122/71
--- NOTE | 2019-07-01 20:00 | NUR ---
PT IS RESTING IN BED WITH EYES OPEN. ALERT AND ORIENTED X 3. DENIES ACUTE PAIN OR DISCOMFORT AT THIS TIME. TELEMETRY UNIT IS ON WITH A RATE OF 95 CONTROLLED A FIB WITH BBB. VSS. SR'S ARE UP X 2 IN BED. CALL LIGHT AND BEDSIDE TABLE ARE WITHIN EASY REACH.
[2019-07-01 21:14] VITALS: BP 115/55
--- NOTE | 2019-07-01 22:14 | NUR ---
RESTING QUIETLY IN BED WITH EYES CLOSED. NO ACUTE DISTRESS NOTED.
--- NOTE | 2019-07-02 00:01 | NUR ---
PT ASSISTED TO THE BATHROOM WITH MIN ASSIST.
--- NOTE | 2019-07-02 08:07 | NUR ---
ALERT AND ORIENTED. EATING BREAKFAST. CL IN REACH.
[2019-07-02 08:10] VITALS: BP 145/81
--- NOTE | 2019-07-02 09:39 | NUR ---
PATIENT DISCHARGING BACK TO HER HOME. [facility] WILL PROVIDE THERAPY AT HOME. NO NEW DME NEEDED AT THIS TIME. DR. RICE 07/11/19 @ 11:30. PATIENT CHOICE FORM AND COMPARE DATA REVIEWED WITH PATIENT , COPY GIVEN TO HER AND SHE VOICED UNDERSTANDING. [facility] FORM SIGNED, COPY GIVEN TO PATIENT AND FILED IN CHART. DISCHARGE INSTRUCTIONS FAXED TO PCP , HOME HEALTH AND REVIEWED WITH PATIENT.
--- NOTE | 2019-07-02 10:00 | NUR ---
DC INSTRUCTIONS GIVEN. VERBALIZES UNDERSTANDING. WILL DC HOME WITH FAMILY TODAY AND [facility]. NO CHANGE IN ASSESSMENT. WILL BE ASSISTED TO CAR IN WC BY STAFF FOR DC HOME.
== END 2019-07-02 11:59 | disposition home health service (06) | DRG 309 ==
LOC: D.REHAB 17:23
PROVIDERS: ADMIT Emergency Medicine; ATTEND Emergency Medicine
DX: I48.91 Unspecified atrial fibrillation (principal); N17.9 Acute kidney failure, unspecified; E87.1 Hypo-osmolality and hyponatremia; I10 Essential (primary) hypertension; J44.9 Chronic obstructive pulmonary disease, unspecified; Z91.81 History of falling; R00.0 Tachycardia, unspecified; R53.81 Other malaise; I11.0 Hypertensive heart disease with heart failure; I50.9 Heart failure, unspecified; R53.1 Weakness; K21.9 Gastro-esophageal reflux disease without esophagitis; G89.29 Other chronic pain; D50.9 Iron deficiency anemia, unspecified